=== PATIENT | male | born 1950 | race Caucasian/White ===

== ENCOUNTER 2019-04-05 17:50 | Inpatient (IN) | payer MEDICARE ==
[~2019-04-05] VITALS: Ht 177.8 cm; Wt 107.6 kg
[2019-04-05 18:38] LABS: BASO # 0.1 x10^3/uL (0.0-0.2); BASO % 1 % (0-3); EOS # 0.1 x10^3/uL (0.0-0.7); EOS % 1 % (0-3); HEMATOCRIT 45.9 % (39.0-53.0); HEMOGLOBIN 15.6 g/dL (13.0-17.5); LYMPH # 2.5 x10^3/uL (1.0-4.8); LYMPH % 26 % (24-48); MEAN CORPUSCULAR HEMOGLOBIN 30 pg (25-35); MEAN CORPUSCULAR HGB CONC 34 g/dL (31-37); MEAN CORPUSCULAR VOLUME 89 fL (79-100); MONO % 10 % (0-9); NEUT # 6.1 x10^3uL (1.8-7.7); NEUT % 62 % (31-73); PLATELET COUNT 320 x10^3/uL (140-400); RED BLOOD COUNT 5.18 x10^6/uL (4.30-5.70); RED CELL DISTRIBUTION WIDTH 12.7 % (11.5-14.5); WHITE BLOOD COUNT 9.9 x10^3/uL (4.0-11.0)
[2019-04-05 18:44] LABS: CALCIUM 9.3 mg/dL (8.5-10.1); CREATININE 0.9 mg/dL (0.7-1.3); GFR 83.7; POTASSIUM 4.2 mmol/L (3.5-5.1)
[2019-04-05 18:50] LABS: ALBUMIN/GLOBULIN RATIO 1.4 (1.0-1.7); TOTAL BILIRUBIN 0.3 mg/dL (0.2-1.0); TOTAL PROTEIN 6.8 g/dL (6.4-8.2)
[2019-04-05] MEDS ORDERED: ASPIRIN CHEWABLE 81 MG TABLET. PO ONE (19:00)
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
--- NOTE | 2019-04-05 19:05 | RAD ---
Two-view chest dated 04/05/2019. No comparison available. CLINICAL INDICATION: Chest pain. FINDINGS: PA and lateral views of the chest were obtained. Heart and mediastinal contours within normal limits. Lungs are clear without focal consolidation. Vascular interstitium within normal limits. No pleural effusion or pneumothorax. IMPRESSION: No acute radiographic abnormality. Electronically signed by: Jagjit Mckinnon MD (04/05/2019 7:02 PM) [facility]
[2019-04-05] MEDS ORDERED: NITROGLYCERIN SUBLINGUAL 0.4 MG BOTTLE OF 25. SL PRN (19:45)
[2019-04-05] MEDS ORDERED: ONDANSETRON PF 4 MG/2 ML VIAL. IV PRN (19:45)
[2019-04-05] MEDS ORDERED: MORPHINE SULFATE 2 MG/ML VIAL. IV PRN (19:45)
[2019-04-05 21:50] VITALS: BP 145/97
--- NOTE | 2019-04-05 21:50 | NUR ---
Admit from ER w/ c/o "sharp" chest pain. Points w/ 1 finger at left sternum. Also c/o slight SOA. Denies N/V, sweating, being dizzy or pain radiation. Spouse drive him to ER. Is A/O with bilat hearing aids. Denies chest pain now.
--- NOTE | 2019-04-05 23:13 | NUR ---
Asleep in bed, snores. Patient states he wears a Cpap .
[2019-04-05 23:20] VITALS: BP 120/77
[2019-04-06 03:30] VITALS: BP 119/71
--- NOTE | 2019-04-06 06:13 | EKG ---
[facility] [address] [place] [address] Test Date: 2019-04-05 Test Time: 17:56:05 Pat Name: NITHIN JOVEL Department: Room: Gender: M Mechanic/Welder: : 1950 Requested By: TINO GARDINER Order Number: [id number] Reading MD: Measurements Intervals [place] Rate: 71 P: 31 NC: 146 QRS: -24 QRSD: 104 T: 41 QT: 388 QTc: 422 Interpretive Statements SINUS RHYTHM VENTRICULAR PREMATURE COMPLEX(ES) LEFTWARD AXIS QRS(T) CONTOUR ABNORMALITY CONSIDER ANTEROLATERAL MYOCARDIAL DAMAGE CONSIDER INFERIOR MYOCARDIAL DAMAGE ABNORMAL ECG RI6.01 Unconfirmed report No previous ECG available for comparison
[2019-04-06 07:25] VITALS: BP 127/82
--- NOTE | 2019-04-06 07:27 | NUR ---
Cardiology consult called: 04/06/19 4199
[2019-04-06 09:12] LABS: MAGNESIUM 1.7 mg/dL (1.8-2.4)
[2019-04-06 09:13] LABS: CHOLESTEROL/HDL RATIO 3.4
--- NOTE | 2019-04-06 10:18 | PDOC1 ---
History and Physical Date of Admission Date of Admission DATE: 04/06/19 TIME: 10:08 Identification/Chief Complaint Chief Complaint chest pain Problems: (1) Angina pectoris Source Source: Chart review, Patient History of Present Illness History of Present Illness 68 year old comes in with acute onset of chest pain that started last night whi le he was moving furniture in his basement. CP described as sharp, midsternum, non radiating lasting 1 hr, 2/10. did not take anything to help resolve chest pain. reports chest pain on and off for 6 weeks. seen by PCP as outpatient and given PPI and steroids with no relief. scheduled to see outpatient cards per patient. last stress test was 5 years ago. brother and father had CABG in 50s. denies smoking drugs or etoh. currently has no diagnosed medical problems and takes no meds. trop negative, EKG without any acute changes. chest xray negative. hospitalist asked to admit for ACS rule out. Past Medical History Past Medical History denies Past Surgical History Past Surgical History denies Family History Family History father and brother with CABG in 50s Social History Smoke: No ALCOHOL: none Drugs: None Current Problem List Problem List Problems Medical Problems: (1) Angina pectoris Status: Acute Current Medications Current Medications Current Medications Aspirin (Children'S Aspirin) 324 mg 1X ONCE PO ; Start 04/05/19 at 19:00; Stop 04/05/19 at 19:01; Status DC Ondansetron HCl (Zofran) 4 mg PRN Q8HRS PRN IV NAUSEA/VOMITING; Start 04/05/19 at 19:45; Stop 04/06/19 at 19:44 Morphine Sulfate (Morphine Sulfate) 2 mg PRN Q2HR PRN IV PAIN; Start 04/05/19 at 19:45; Stop 04/06/19 at 19:44 Nitroglycerin (Nitrostat) 0.4 mg PRN Q5MIN PRN SL CHEST PAIN; Start 04/05/19 at 19:45; Stop 04/06/19 at 19:44 Allergies Allergies: Coded Allergies: Penicillins (Verified Allergy, Intermediate, rash, 04/05/19) ROS Review of System CONSTITUTIONAL: No fever or chills EYES: No recent changes SKIN: No rash or itching CARDIOVASCULAR: No chest pain, syncope, palpitations, or edema RESPIRATORY: No SOB or cough GASTROINTESTINAL: No nausea, vomiting or abdominal pain NEUROLOGICAL: No headaches or weakness ENDOCRINE: No cold or heat intolerance GENITOURINARY: No urgency or frequency of urination MUSCULOSKELETAL: No back pain or joint pain LYMPHATICS: No enlarged lymph nodes PSYCHIATRIC: No anxiety or depression Physical Exam Physical Exam GENERAL: No apparent distress. Alert and oriented. HEENT: Head normocephalic, atraumatic. NECK: Supple LUNGS: Clear to auscultation. HEART: RRR, S1, S2 present, pulses intact ABDOMEN: Soft, positive bowel sounds. EXTREMITIES: No cyanosis or edema. NEUROLOGIC: Normal speech, normal tone PSYCHIATRIC: Normal affect, normal mood. SKIN: No ulceration. Vitals Vitals Vital Signs Date Time Temp Pulse Resp B/P (MAP) Pulse Ox O2 Delivery O2 Flow Rate FiO2 04/06/19 07:25 97.9 57 18 127/82 (97) 94 Room Air 97.9 Labs Labs Laboratory Tests Test 04/05/19 17:59 04/06/19 07:58 White Blood Count 9.9 x10^3/uL (4.0-11.0) Red Blood Count 5.18 x10^6/uL (4.30-5.70) Hemoglobin 15.6 g/dL (13.0-17.5) Hematocrit 45.9 % (39.0-53.0) Mean Corpuscular Volume 89 fL (79-100) Mean Corpuscular Hemoglobin 30 pg (25-35) Mean Corpuscular Hemoglobin Concent 34 g/dL (31-37) Red Cell Distribution Width 12.7 % (11.5-14.5) Platelet Count 320 x10^3/uL (140-400) Neutrophils (%) (Auto) 62 % (31-73) Lymphocytes (%) (Auto) 26 % (24-48) Monocytes (%) (Auto) 10 % (0-9) Eosinophils (%) (Auto) 1 % (0-3) Basophils (%) (Auto) 1 % (0-3) Neutrophils # (Auto) 6.1 x10^3uL (1.8-7.7) Lymphocytes # (Auto) 2.5 x10^3/uL (1.0-4.8) Monocytes # (Auto) 1.0 x10^3/uL (0.0-1.1) Eosinophils # (Auto) 0.1 x10^3/uL (0.0-0.7) Basophils # (Auto) 0.1 x10^3/uL (0.0-0.2) Sodium Level 141 mmol/L (136-145) Potassium Level 4.2 mmol/L (3.5-5.1) Chloride Level 105 mmol/L (98-107) Carbon Dioxide Level 25 mmol/L (21-32) Anion Gap 11 (6-14) Blood Urea Nitrogen 19 mg/dL (8-26) Creatinine 0.9 mg/dL (0.7-1.3) Estimated GFR (Cockcroft-Gault) 83.7 BUN/Creatinine Ratio 21 (6-20) Glucose Level 105 mg/dL (70-99) Calcium Level 9.3 mg/dL (8.5-10.1) Total Bilirubin 0.3 mg/dL (0.2-1.0) Aspartate Amino Transf (AST/SGOT) 23 U/L (15-37) Alanine Aminotransferase (ALT/SGPT) 57 U/L (16-63) Alkaline Phosphatase 75 U/L (46-116) Troponin I Quantitative 0.032 ng/mL (0.000-0.055) 0.045 ng/mL (0.000-0.055) Total Protein 6.8 g/dL (6.4-8.2) Albumin 4.0 g/dL (3.4-5.0) Albumin/Globulin Ratio 1.4 (1.0-1.7) Magnesium Level 1.7 mg/dL (1.8-2.4) Triglycerides Level 86 mg/dL (0-150) Cholesterol Level 102 mg/dL (0-200) LDL Cholesterol, Calculated 55 mg/dL (0-100) VLDL Cholesterol, Calculated 17 mg/dL (0-40) Non-HDL Cholesterol Calculated 72 mg/dL (0-129) HDL Cholesterol 30 mg/dL (40-60) Cholesterol/HDL Ratio 3.4 Laboratory Tests Test 04/05/19 17:59 04/06/19 07:58 White Blood Count 9.9 x10^3/uL (4.0-11.0) Red Blood Count 5.18 x10^6/uL (4.30-5.70) Hemoglobin 15.6 g/dL (13.0-17.5) Hematocrit 45.9 % (39.0-53.0) Mean Corpuscular Volume 89 fL (79-100) Mean Corpuscular Hemoglobin 30 pg (25-35) Mean Corpuscular Hemoglobin Concent 34 g/dL (31-37) Red Cell Distribution Width 12.7 % (11.5-14.5) Platelet Count 320 x10^3/uL (140-400) Neutrophils (%) (Auto) 62 % (31-73) Lymphocytes (%) (Auto) 26 % (24-48) Monocytes (%) (Auto) 10 % (0-9) Eosinophils (%) (Auto) 1 % (0-3) Basophils (%) (Auto) 1 % (0-3) Neutrophils # (Auto) 6.1 x10^3uL (1.8-7.7) Lymphocytes # (Auto) 2.5 x10^3/uL (1.0-4.8) Monocytes # (Auto) 1.0 x10^3/uL (0.0-1.1) Eosinophils # (Auto) 0.1 x10^3/uL (0.0-0.7) Basophils # (Auto) 0.1 x10^3/uL (0.0-0.2) Sodium Level 141 mmol/L (136-145) Potassium Level 4.2 mmol/L (3.5-5.1) Chloride Level 105 mmol/L (98-107) Carbon Dioxide Level 25 mmol/L (21-32) Anion Gap 11 (6-14) Blood Urea Nitrogen 19 mg/dL (8-26) Creatinine 0.9 mg/dL (0.7-1.3) Estimated GFR (Cockcroft-Gault) 83.7 BUN/Creatinine Ratio 21 (6-20) Glucose Level 105 mg/dL (70-99) Calcium Level 9.3 mg/dL (8.5-10.1) Total Bilirubin 0.3 mg/dL (0.2-1.0) Aspartate Amino Transf (AST/SGOT) 23 U/L (15-37) Alanine Aminotransferase (ALT/SGPT) 57 U/L (16-63) Alkaline Phosphatase 75 U/L (46-116) Troponin I Quantitative 0.032 ng/mL (0.000-0.055) 0.045 ng/mL (0.000-0.055) Total Protein 6.8 g/dL (6.4-8.2) Albumin 4.0 g/dL (3.4-5.0) Albumin/Globulin Ratio 1.4 (1.0-1.7) Magnesium Level 1.7 mg/dL (1.8-2.4) Triglycerides Level 86 mg/dL (0-150) Cholesterol Level 102 mg/dL (0-200) LDL Cholesterol, Calculated 55 mg/dL (0-100) VLDL Cholesterol, Calculated 17 mg/dL (0-40) Non-HDL Cholesterol Calculated 72 mg/dL (0-129) HDL Cholesterol 30 mg/dL (40-60) Cholesterol/HDL Ratio 3.4 VTE Prophylaxis Ordered VTE Prophylaxis Devices: Yes VTE Pharmacological Prophylaxi: No Assessment/Plan Assessment/Plan ASSESSMENT chest pain, rule out ACS - low clinical pretest prob for PE/DVT - admit to cardiac tele - trend trop - lipids checked and okay - continue ASA - BP stable - NPO for cardiac stress testing - cards consult - check TTE - dvt ppx: ambulatory - full code - dispo: dc once ACS rule out. BEVERLY FARFAN MD April 06, 2019 10:18
[2019-04-06] MEDS ORDERED: ASPIRIN 325 MG TABLET PO SCH (10:30)
[2019-04-06] MEDS ORDERED: MAGNESIUM SULFATE 3 GM in IV DEXTROSE 5% 100ML 100 ML IV ONE (11:00)
--- NOTE | 2019-04-06 11:00 | PDOC2 ---
CARDIAC CONSULT DATE OF CONSULT Date of Consult DATE: 04/06/19 TIME: 10:37 REASON FOR CONSULT Reason for Consult: Angina REFERRING PHYSICIAN Referring Physician: Jhon SOURCE Source: Chart review, Patient HISTORY OF PRESENT ILLNESS HISTORY OF PRESENT ILLNESS This is a pleasant 68 yo male admitted for complains of chest pain. This pain is to the left chest midclavicular line that is focal and reproducible with palpation and has not had it overnight. He was lifting furnitures some of them about 50 pounds for about 30 minutes of activity and at the end of activity started having chest pain as described and was using a lot of his left arm at that time. No radiation but at some point felt a little SOA and flushed but no nausea or vomiting or palpitations or dizziness. He was seen recently by his PCP and diagnosed for typical GERD and was given protonix. EKG was done and showed abnormality telling him he may have had a silent OK int he past hence he has a follow up with assembler musical equipment not here next week. He would like to continue with that new appointment. Denies any VTE, recent falls or injury. His pain is not reproducible with ROM but focal with palpation. He does not exercise and no recreational drug use. PAST MEDICAL HISTORY Cardiovascular: HTN, Hyperlipidemia Pulmonary: No pertinent hx CENTRAL NERVOUS SYSTEM: Carpal Tunnel Syndrome GI: GERD Heme/Onc: No pertinent hx Hepatobiliary: No pertinent hx Psych: No pertinent hx Musculoskeletal: Osteoarthritis Rheumatologic: No pertinent hx Infectious disease: No pertinent hx ENT: No pertinent hx Renal/: No pertinent hx Endocrine: No pertinent hx Dermatology: No pertinent hx PAST SURGICAL HISTORY Past Surgical History: Arthroscopy (right and left), Tonsillectomy, Other (CTS bilateral wrist repair, left elbow repair) FAMILY HISTORY Family History: Coronary Artery Disease (father and brother in their 50s) SOCIAL HISTORY Smoke: No ALCOHOL: none Drugs: None Lives: with Family ALLERGIES ALLERGIES: Coded Allergies: Penicillins (Verified Allergy, Intermediate, rash, 04/05/19) ROS Review of System 14 point ROS evlauated with pertinent positives noted per HPI PHYSICAL EXAM General: Alert, Oriented X3, Cooperative, No acute distress HEENT: Atraumatic, Mucous membr. moist/pink Lungs: Clear to auscultation, Normal air movement Heart: Regular rate (SR with occasional PVC), Normal S1, Normal S2, No murmurs Abdomen: Soft, No tenderness Extremities: No cyanosis, Normal pulses Skin: No breakdown, No significant lesion Neuro: Normal speech, Sensation intact Psych/Mental Status: Mental status NL, Mood NL MUSCULOSKELETAL: Osteoarthritic changes both hands VITALS VITALS Vital Signs Date Time Temp Pulse Resp B/P (MAP) Pulse Ox O2 Delivery O2 Flow Rate FiO2 04/06/19 07:25 97.9 57 18 127/82 (97) 94 Room Air 97.9 LABS Lab: Laboratory Tests Test 04/05/19 17:59 04/06/19 07:58 White Blood Count 9.9 x10^3/uL (4.0-11.0) Red Blood Count 5.18 x10^6/uL (4.30-5.70) Hemoglobin 15.6 g/dL (13.0-17.5) Hematocrit 45.9 % (39.0-53.0) Mean Corpuscular Volume 89 fL (79-100) Mean Corpuscular Hemoglobin 30 pg (25-35) Mean Corpuscular Hemoglobin Concent 34 g/dL (31-37) Red Cell Distribution Width 12.7 % (11.5-14.5) Platelet Count 320 x10^3/uL (140-400) Neutrophils (%) (Auto) 62 % (31-73) Lymphocytes (%) (Auto) 26 % (24-48) Monocytes (%) (Auto) 10 % (0-9) Eosinophils (%) (Auto) 1 % (0-3) Basophils (%) (Auto) 1 % (0-3) Neutrophils # (Auto) 6.1 x10^3uL (1.8-7.7) Lymphocytes # (Auto) 2.5 x10^3/uL (1.0-4.8) Monocytes # (Auto) 1.0 x10^3/uL (0.0-1.1) Eosinophils # (Auto) 0.1 x10^3/uL (0.0-0.7) Basophils # (Auto) 0.1 x10^3/uL (0.0-0.2) Sodium Level 141 mmol/L (136-145) Potassium Level 4.2 mmol/L (3.5-5.1) Chloride Level 105 mmol/L (98-107) Carbon Dioxide Level 25 mmol/L (21-32) Anion Gap 11 (6-14) Blood Urea Nitrogen 19 mg/dL (8-26) Creatinine 0.9 mg/dL (0.7-1.3) Estimated GFR (Cockcroft-Gault) 83.7 BUN/Creatinine Ratio 21 (6-20) Glucose Level 105 mg/dL (70-99) Calcium Level 9.3 mg/dL (8.5-10.1) Total Bilirubin 0.3 mg/dL (0.2-1.0) Aspartate Amino Transf (AST/SGOT) 23 U/L (15-37) Alanine Aminotransferase (ALT/SGPT) 57 U/L (16-63) Alkaline Phosphatase 75 U/L (46-116) Troponin I Quantitative 0.032 ng/mL (0.000-0.055) 0.045 ng/mL (0.000-0.055) Total Protein 6.8 g/dL (6.4-8.2) Albumin 4.0 g/dL (3.4-5.0) Albumin/Globulin Ratio 1.4 (1.0-1.7) Magnesium Level 1.7 mg/dL (1.8-2.4) Triglycerides Level 86 mg/dL (0-150) Cholesterol Level 102 mg/dL (0-200) LDL Cholesterol, Calculated 55 mg/dL (0-100) VLDL Cholesterol, Calculated 17 mg/dL (0-40) Non-HDL Cholesterol Calculated 72 mg/dL (0-129) HDL Cholesterol 30 mg/dL (40-60) Cholesterol/HDL Ratio 3.4 ASSESSMENT/PLAN ASSESSMENT/PLAN 1. Chest pain: mixed features. reproducible with palpation, possibly MSK. Trops are marginal EKG SR with LAFB with occasional unifocal PVCs. 2. Hypomagnesemia 3. HLP: on goal 4. HTN: controlled Recommendations 1. TTE. Repeat trop. If unremarkable then continue with his outpt cardiology new appt next week as he requested 2. Discussed need to outpt stress test which could be arrange with his primary assembler musical equipment 3. TSH, lipids. Restart home ASA, ARB and statin. Replace Mg. 4. May need MCOT to note PVC burden PEDRO ALMENDAREZ APRN April 06, 2019 11:00
[2019-04-06 11:09] VITALS: BP 137/86
--- NOTE | 2019-04-06 12:36 | CARD ---
MR#: [id number] Date of Study: 04/06/2019 Ordering Physician: PEDRO ALMENDAREZ, Referring Physician: ZURDO BETANCOURT, Tech: Natalee Hills APPROVED REPORT EXAM: Two-dimensional and M-mode echocardiogram with Doppler and color Doppler. Other Information Quality : AverageHR: 70bpm INDICATION Chest Pain RISK FACTORS Hypertension Hyperlipidemia 2D DIMENSIONS Left Atrium(2D)3.5 (1.6-4.0cm)IVSd1.3 (0.7-1.1cm) Aortic Root(2D)3.6 (2.0-3.7cm)LVDd5.4 (3.9-5.9cm) LVOT Diameter2.2 (1.8-2.4cm)PWd1.0 (0.7-1.1cm) LVDs3.6 (2.5-4.0cm)FS (%) 33.4 % SV87.6 mlLVEF(%)61.6 (>50%) Aortic Valve AoV Peak Thanh.115.4cm/sAoV VTI27.4cm AO Peak GR.5.3mmHgLVOT Peak Thanh.84.9cm/s AO Mean GR.3mmHgAVA (VMAX)2.85cm2 Mitral Valve MV E Lrwgyyen69.7cm/sMV DECEL [id number] MV A Hptbipqw34.5cm/sE/A Ratio0.8 Pulmonary Valve PV Peak Pqjcfgqa31.6cm/s Tricuspid Valve TR P. Urgyplnf539sg/sRAP AQUHLOAY36loHq TR Peak Gr.07olKnHSPJ95oqHu Pulmonary Vein S1 Fppjdnth03.2cm/sD2 Jaxklyut90.7cm/s PVa [id number] LEFT VENTRICLE The left ventricle is normal size. There is moderate concentric left ventricular hypertrophy. The lef t ventricular systolic function is normal and the ejection fraction is within normal range. The Eject ion Fraction is 50-55%. There is normal LV segmental wall motion. Transmitral Doppler flow pattern is Grade I-abnormal relaxation pattern. RIGHT VENTRICLE The right ventricle is mildly dilated. There is normal right ventricular wall thickness. The right ve ntricular systolic function is normal. ATRIA The left atrium size is normal. The right atrium size is normal. The interatrial septum is intact wit h no evidence for an atrial septal defect or patent foramen ovale as noted on 2-D or Doppler imaging. AORTIC VALVE The aortic valve is normal in structure and function. Doppler and Color Flow revealed no significant aortic regurgitation. There is no significant aortic valvular stenosis. MITRAL VALVE The mitral valve is normal in structure and function. There is no evidence of mitral valve prolapse. There is no mitral valve stenosis. Doppler and Color Flow revealed no mitral valve regurgitation note d. TRICUSPID VALVE The tricuspid valve is normal in structure and function. Doppler and Color Flow revealed trace tricus pid regurgitation with an estimated PAP of 34 mmHg. There is no tricuspid valve stenosis. PULMONIC VALVE The pulmonic valve is not well visualized. Doppler and Color Flow revealed mild pulmonic valvular reg urgitation. GREAT VESSELS The aortic root is normal in size. The IVC is dilated and collapses >50% with inspiration. PERICARDIAL EFFUSION There is no evidence of significant pericardial effusion. Critical Notification Critical Value: No <Conclusion> The left ventricular systolic function is normal and the ejection fraction is within normal range. Th e Ejection Fraction is 50-55%. There is normal LV segmental wall motion. There is moderate concentric left ventricular hypertrophy. Signed by : Jose Angel Baires, Electronically Approved : 04/06/2019 12:36:19
--- NOTE | 2019-04-06 12:50 | NUR ---
SS following for discharge planning. SS reviewed pt chart. Pt is from home with spouse and is currently on room air. No discharge needs noted at this time. SS will continue to follow for discharge planning.
--- NOTE | 2019-04-06 13:40 | EKG ---
[facility] [address] [place] [address] Test Date: 2019-04-06 Test Time: 13:30:21 Pat Name: NITHIN JOVEL Department: Room: 258 1 Gender: M Channel Marketing Manager: RADHA : 1950 Requested By: PEDRO ALMENDAREZ Order Number: [id number] Reading MD: Jose Angel Baires MD Measurements Intervals [place] Rate: 64 P: 24 NV: 166 QRS: -20 QRSD: 102 T: 29 QT: 424 QTc: 437 Interpretive Statements SINUS RHYTHM VENTRICULAR PREMATURE COMPLEX(ES) Electronically Signed On 04-12-2019 11:44:03 CDT by Jose Angel Baires MD
[2019-04-06] MEDS ORDERED: LOSARTAN POTASSIUM 50 MG TABLET. PO SCH (15:00)
[2019-04-06] MEDS ORDERED: amLODIPine BESYLATE 5 MG TABLET PO SCH (15:00)
[2019-04-06] MEDS ORDERED: PANTOPRAZOLE 40 MG TABLET.DR. PO SCH (15:00)
[2019-04-06] MEDS ORDERED: ASPI81TA50 PO (15:14)
[2019-04-06] MEDS ORDERED: LOSA-73 PO (15:14)
[2019-04-06] MEDS ORDERED: ATOR20TA58 PO (15:14)
--- NOTE | 2019-04-06 15:31 | PDOC3 ---
Discharge Summary Visit Information Date of Admission: April 06, 2019 Date of Discharge: April 06, 2019 Final Diagnosis Problems Medical Problems: (1) Angina pectoris Status: Acute Brief Hospital Course Allergies Allergies Coded Allergies Type Severity Reaction Last Updated Verified Penicillins Allergy Intermediate rash 04/05/19 Yes Vital Signs Vital Signs Date Time Temp Pulse Resp B/P (MAP) Pulse Ox O2 Delivery O2 Flow Rate FiO2 04/06/19 11:09 97.9 69 18 137/86 (103) 94 Room Air 97.9 Lab Results Laboratory Tests Test 04/05/19 17:59 04/06/19 07:58 04/06/19 12:25 White Blood Count 9.9 x10^3/uL (4.0-11.0) Red Blood Count 5.18 x10^6/uL (4.30-5.70) Hemoglobin 15.6 g/dL (13.0-17.5) Hematocrit 45.9 % (39.0-53.0) Mean Corpuscular Volume 89 fL (79-100) Mean Corpuscular Hemoglobin 30 pg (25-35) Mean Corpuscular Hemoglobin Concent 34 g/dL (31-37) Red Cell Distribution Width 12.7 % (11.5-14.5) Platelet Count 320 x10^3/uL (140-400) Neutrophils (%) (Auto) 62 % (31-73) Lymphocytes (%) (Auto) 26 % (24-48) Monocytes (%) (Auto) 10 % (0-9) Eosinophils (%) (Auto) 1 % (0-3) Basophils (%) (Auto) 1 % (0-3) Neutrophils # (Auto) 6.1 x10^3uL (1.8-7.7) Lymphocytes # (Auto) 2.5 x10^3/uL (1.0-4.8) Monocytes # (Auto) 1.0 x10^3/uL (0.0-1.1) Eosinophils # (Auto) 0.1 x10^3/uL (0.0-0.7) Basophils # (Auto) 0.1 x10^3/uL (0.0-0.2) Sodium Level 141 mmol/L (136-145) Potassium Level 4.2 mmol/L (3.5-5.1) Chloride Level 105 mmol/L (98-107) Carbon Dioxide Level 25 mmol/L (21-32) Anion Gap 11 (6-14) Blood Urea Nitrogen 19 mg/dL (8-26) Creatinine 0.9 mg/dL (0.7-1.3) Estimated GFR (Cockcroft-Gault) 83.7 BUN/Creatinine Ratio 21 (6-20) Glucose Level 105 mg/dL (70-99) Calcium Level 9.3 mg/dL (8.5-10.1) Total Bilirubin 0.3 mg/dL (0.2-1.0) Aspartate Amino Transf (AST/SGOT) 23 U/L (15-37) Alanine Aminotransferase (ALT/SGPT) 57 U/L (16-63) Alkaline Phosphatase 75 U/L (46-116) Troponin I Quantitative 0.032 ng/mL (0.000-0.055) 0.045 ng/mL (0.000-0.055) 0.050 ng/mL (0.000-0.055) Total Protein 6.8 g/dL (6.4-8.2) Albumin 4.0 g/dL (3.4-5.0) Albumin/Globulin Ratio 1.4 (1.0-1.7) Magnesium Level 1.7 mg/dL (1.8-2.4) Triglycerides Level 86 mg/dL (0-150) Cholesterol Level 102 mg/dL (0-200) LDL Cholesterol, Calculated 55 mg/dL (0-100) VLDL Cholesterol, Calculated 17 mg/dL (0-40) Non-HDL Cholesterol Calculated 72 mg/dL (0-129) HDL Cholesterol 30 mg/dL (40-60) Cholesterol/HDL Ratio 3.4 Laboratory Tests Test 04/05/19 17:59 04/06/19 07:58 04/06/19 12:25 White Blood Count 9.9 x10^3/uL (4.0-11.0) Red Blood Count 5.18 x10^6/uL (4.30-5.70) Hemoglobin 15.6 g/dL (13.0-17.5) Hematocrit 45.9 % (39.0-53.0) Mean Corpuscular Volume 89 fL (79-100) Mean Corpuscular Hemoglobin 30 pg (25-35) Mean Corpuscular Hemoglobin Concent 34 g/dL (31-37) Red Cell Distribution Width 12.7 % (11.5-14.5) Platelet Count 320 x10^3/uL (140-400) Neutrophils (%) (Auto) 62 % (31-73) Lymphocytes (%) (Auto) 26 % (24-48) Monocytes (%) (Auto) 10 % (0-9) Eosinophils (%) (Auto) 1 % (0-3) Basophils (%) (Auto) 1 % (0-3) Neutrophils # (Auto) 6.1 x10^3uL (1.8-7.7) Lymphocytes # (Auto) 2.5 x10^3/uL (1.0-4.8) Monocytes # (Auto) 1.0 x10^3/uL (0.0-1.1) Eosinophils # (Auto) 0.1 x10^3/uL (0.0-0.7) Basophils # (Auto) 0.1 x10^3/uL (0.0-0.2) Sodium Level 141 mmol/L (136-145) Potassium Level 4.2 mmol/L (3.5-5.1) Chloride Level 105 mmol/L (98-107) Carbon Dioxide Level 25 mmol/L (21-32) Anion Gap 11 (6-14) Blood Urea Nitrogen 19 mg/dL (8-26) Creatinine 0.9 mg/dL (0.7-1.3) Estimated GFR (Cockcroft-Gault) 83.7 BUN/Creatinine Ratio 21 (6-20) Glucose Level 105 mg/dL (70-99) Calcium Level 9.3 mg/dL (8.5-10.1) Total Bilirubin 0.3 mg/dL (0.2-1.0) Aspartate Amino Transf (AST/SGOT) 23 U/L (15-37) Alanine Aminotransferase (ALT/SGPT) 57 U/L (16-63) Alkaline Phosphatase 75 U/L (46-116) Troponin I Quantitative 0.032 ng/mL (0.000-0.055) 0.045 ng/mL (0.000-0.055) 0.050 ng/mL (0.000-0.055) Total Protein 6.8 g/dL (6.4-8.2) Albumin 4.0 g/dL (3.4-5.0) Albumin/Globulin Ratio 1.4 (1.0-1.7) Magnesium Level 1.7 mg/dL (1.8-2.4) Triglycerides Level 86 mg/dL (0-150) Cholesterol Level 102 mg/dL (0-200) LDL Cholesterol, Calculated 55 mg/dL (0-100) VLDL Cholesterol, Calculated 17 mg/dL (0-40) Non-HDL Cholesterol Calculated 72 mg/dL (0-129) HDL Cholesterol 30 mg/dL (40-60) Cholesterol/HDL Ratio 3.4 Brief Hospital Course 68 year old comes in with acute onset of chest pain that started last night while he was moving furniture in his basement. CP described as sharp, midsternum, non radiating lasting 1 hr, 2/10. did not take anything to help resolve chest pain. reports chest pain on and off for 6 weeks. seen by PCP as outpatient and given PPI and steroids with no relief. scheduled to see outpatient cards per patient. last stress test was 5 years ago. brother and father had CABG in 50s. denies smoking drugs or etoh. currently has no diagnosed medical problems and takes no meds. trop negative, EKG without any acute changes. chest xray negative. hospitalist asked to admit for ACS rule out. Chest pain: mixed features. reproducible with palpation, possibly MSK. TTE done without wall motion abnormalities. trops negative. will start ASA statin and ARB. Mg low and replaced. will follow up with cards as outpatient for stress test. may need MCOT to note PVC burden. defer to cards. patient discharged in stable condition. Discharge Information Condition at Discharge: Stable Follow Up: Weeks (outpatient cards follow up) Disposition/Orders: D/C to Home Scheduled Aspirin (Aspir-Low) 81 Mg Tablet., 1 TAB PO DAILY for chest pain for 30 Days, #30 Ref 3 Prescribed by: BEVERLY FARFAN MD on 04/06/19 1514 Atorvastatin Calcium (Atorvastatin Calcium) 20 Mg Tablet, 1 TAB PO DAILY for hld for 30 Days, #30 Ref 5 Prescribed by: BEVERLY FARFAN MD on 04/06/19 1514 Losartan Potassium (Losartan Potassium) 50 Mg Tablet, 50 MG PO DAILY for HYPERTENSION for 30 Days, #30 Prescribed by: BEVERLY FARFAN MD on 04/06/194 BEVERLY FARFAN MD April 06, 2019 15:31
[2019-04-06 15:32] VITALS: BP 132/75
--- NOTE | 2019-04-06 15:48 | NUR ---
Discharge Note: NITHIN JOVEL [address] [place] [address] Discharge instructions and discharge home medications reviewed with Patient and a copy given. All questions have been answered and understanding verbalized. The following instructions and handouts were given: Cardiac diet, stress test, CP Discontinued lines and drains: peripheral IV. Patient discharged to Home or Self Care with Spouse via Ambulated Pt declined f/u appt. Has an appt. Wed. w/ his [facility].
[2019-04-06] MEDS ORDERED: ATORVASTATIN CALCIUM 10 MG TABLET. PO SCH (21:00)
== END 2019-04-06 15:55 | disposition home or self-care (01) | DRG 313 ==
LOC: ER 17:50 → 2 SOUTH 19:27
PROVIDERS: ADMIT Family Medicine; ATTEND Family Medicine
DX: R07.89 Other chest pain (principal); E83.42 Hypomagnesemia; E78.5 Hyperlipidemia, unspecified; I10 Essential (primary) hypertension; G56.00 Carpal tunnel syndrome, unspecified upper limb; M19.90 Unspecified osteoarthritis, unspecified site; K21.9 Gastro-esophageal reflux disease without esophagitis; Z88.0 Allergy status to penicillin; Z82.49 Family history of ischemic heart disease and other diseases of the circulatory system
CPT/HCPCS: 36415; 71046; 80053; 80061; 83735; 84484; 85025; 93005; 93306; J3475; 99285-25

== ENCOUNTER 2021-06-02 01:09 | Emergency (ER) | payer MEDICARE, OTHER ==
[~2021-06-02] VITALS: Ht 177.8 cm; Wt 97.7 kg
[~2021-06-02 01:09] MED LIST: ASPI81TA50 PO; ATOR20TA58 PO; LOSA-73 PO
[2021-06-02] MEDS ORDERED: HYDROmorphone 2 MG/ML VIAL IM ONE (04:00)
--- NOTE | 2021-06-02 04:07 | RAD ---
CT ABDOMEN+PELVIS WO INDICATION: left flank pain, right inguinal pain, stone? EXAM: Noncontrast CT of the abdomen and pelvis. Coronal and sagittal reformatted images were perform ed. PQRS compliance statement: One or more of the following individualized dose reduction techniques were utilized for this examinat ion: 1. Automated exposure control 2. Adjustment of the mA and/or kV according to patient size 3. Use of iterative reconstruction technique COMPARISON: None FINDINGS: No free air, free fluid, or fluid collection. Lower chest: Elevation of the left hemidiaphragm. Left basilar subsegmental and relaxation atelectasi s. Coronary artery atherosclerotic disease. ABDOMEN: Liver: The noncontrast liver is homogeneous in attenuation. Gallbladder and biliary: Normal gallbladder without radiopaque stone. Normal caliber bile ducts. Spleen: Normal spleen. Pancreas: The noncontrast pancreas is homogeneous in attenuation without peripancreatic inflammatory changes. Adrenal glands: Normal adrenal glands. Kidneys and ureters: Mild left hydroureteronephrosis with a 5 x 3 mm calculus at the ureterovesicular junction. Additional nonobstructive left renal 4 mm calculus. GI tract: The stomach is decompressed and poorly evaluated. Normal caliber small bowel and colon. Nor mal appendix. Minimal colonic diverticulosis. Vascular structures: Normal caliber abdominal aorta. Lymph nodes: No lymphadenopathy in the abdomen or pelvis. PELVIS: Genitourinary system: Normal bladder. SKELETAL STRUCTURES AND SOFT TISSUES: No fracture or destructive lesion in the visualized skeleton. IMPRESSION: 1. Mild left hydroureteronephrosis with a 5 x 3 mm calculus at the ureterovesicular junction. 2. Additional nonobstructive left renal 4 mm calculus. Electronically signed by: Ramiro Vilchis MD (06/02/2021 4:04 AM) [facility]PITALJeremias
[2021-06-02] MEDS ORDERED: HYDR-2761 PO (05:58)
[2021-06-02] MEDS ORDERED: TAMS0.4C97 PO (05:58)
[2021-06-02] MEDS ORDERED: ONDA4TAB12 PO (05:58)
--- NOTE | 2021-06-02 05:59 | PHYS DOC ---
Past Medical History Past Medical History: Hypertension Additional Past Medical Histor: CHEHALIS, CARPAL TUNNEL Past Surgical History: Other Additional Past Surgical Histo: BX KNEE SCOPE, L ELBOW Smoking Status: Never Smoker Alcohol Use: None Drug Use: None General Adult EDM: Chief Complaint: FLANK PAIN HPI: HPI: 70 yo male past medical history of hypertension and decreased hearing (got his hearing aids), resents the ED with complaints of left pain that is now moved into his left pelvic region for the past 24 hours with associated severe pain, "I'm vomiting everything up." Review of Systems: Review of Systems: Constitutional: Denies fever or chills. [] Eyes: Denies change in visual acuity. [] HENT: Denies nasal congestion or sore throat. [] Respiratory: Denies cough or shortness of breath. [] Cardiovascular: Denies chest pain or edema. [] GI: Denies bloody stools or diarrhea. [] : Denies dysuria or hematuria Musculoskeletal: Denies joint pain or deformity Integument: Denies rash or diaphoresis Neurologic: Denies headache, focal weakness or sensory changes. [] Endocrine: Denies polyuria or polydipsia. [] Lymphatic: Denies swollen glands. [] Psychiatric: Denies depression or anxiety. [] Heart Score: C/O Chest Pain: No Risk Factors: Risk Factors: DM, Current or recent (<one month) smoker, HTN, HLP, family history of CAD, obesity. Risk Scores: Score 0 - 3: 2.5% MACE over next 6 weeks - Discharge Home Score 4 - 6: 20.3% MACE over next 6 weeks - Admit for Clinical Observation Score 7 - 10: 72.7% MACE over next 6 weeks - Early Invasive Strategies Current Medications: Current Medications Medications (Trade) Dose Ordered Sig/Summer Start Time Stop Time Status Last Admin Dose Admin Hydromorphone HCl (Dilaudid) 1 mg 1X ONCE 06/02/21 04:00 06/02/21 04:04 DC 06/02/21 04:02 1 MG Allergies: Allergies: Allergies Coded Allergies Type Severity Reaction Last Updated Verified Penicillins Allergy Intermediate rash 04/05/19 Yes Physical Exam: PE: CONSTITUTIONAL: Nontoxic, in no distress, alert and oriented, hemodynamically stable HEAD: normocephalic, atraumatic, NECK: No midline tenderness, no nuchal rigidity or meningismus, no JVD or tracheal deviation EENT: External ocular movements intact, no trismus or drooling, no voice changes, moist mucous membranes CARD: Regular rate, S1, S2, no murmurs ABDOMEN: Soft, nontender, no distention, no rebound tenderness or guarding RESPIRATORY lungs clear to auscultation bilaterally, no wheezing, rales or crackles, no stridor or tripoding, unlabored respiratory effort MUSCULOSKELETAL: Full range of motion's in all extremities, no deformities or tenderness to palpation VASCULAR: pulses intact SKIN: Warm, no rash lesions or cyanosis NEURO: Sensory motor intact, cranial nerves II through XII intact PSYCH: Appropriate mood and affect Current Patient Data: Vital Signs: Vital Signs Date Time Temp Pulse Resp B/P (MAP) Pulse Ox O2 Delivery O2 Flow Rate FiO2 06/02/21 04:02 16 97 06/02/21 03:59 80 191/63 (105) Room Air 06/02/21 01:30 98.6 98.6 EKG: EKG: [] Radiology/Procedures: Radiology/Procedures: IMAGING REPORT Signed PATIENT: NITHIN JOVEL ACCOUNT: [id number] : 1950 LOCATION: ER AGE: 70 SEX: M EXAM STATUS: PRE ER ORD. PHYSICIAN: ROBERTA GLOVER DO REASON: left flank pain, right inguinal pain, stone? PROCEDURE: CT ABDOMEN PELVIS WO CONTRAST CT ABDOMEN+PELVIS WO INDICATION: left flank pain, right inguinal pain, stone? EXAM: Noncontrast CT of the abdomen and pelvis. Coronal and sagittal reform atted images were performed. PQRS compliance statement: One or more of the following individualized dose reduction techniques were utilized for this examination: 1. Automated exposure control 2. Adjustment of the mA and/or kV according to patient size 3. Use of iterative reconstruction technique COMPARISON: None FINDINGS: No free air, free fluid, or fluid collection. Lower chest: Elevation of the left hemidiaphragm. Left basilar subsegmental and relaxation atelectasis. Coronary artery atherosclerotic disease. ABDOMEN: Liver: The noncontrast liver is homogeneous in attenuation. Gallbladder and biliary: Normal gallbladder without radiopaque stone. Normal caliber bile ducts. Spleen: Normal spleen. Pancreas: The noncontrast pancreas is homogeneous in attenuation without peripancreatic inflammatory changes. Adrenal glands: Normal adrenal glands. Kidneys and ureters: Mild left hydroureteronephrosis with a 5 x 3 mm calculus at the ureterovesicular junction. Additional nonobstructive left renal 4 mm calcul us. GI tract: The stomach is decompressed and poorly evaluated. Normal caliber small bowel and colon. Normal appendix. Minimal colonic diverticulosis. Vascular structures: Normal caliber abdominal aorta. Lymph nodes: No lymphadenopathy in the abdomen or pelvis. PELVIS: Genitourinary system: Normal bladder. SKELETAL STRUCTURES AND SOFT TISSUES: No fracture or destructive lesion in the visualized skeleton. IMPRESSION: 1. Mild left hydroureteronephrosis with a 5 x 3 mm calculus at the ureterovesicular junction. 2. Additional nonobstructive left renal 4 mm calculus. Electronically signed by: Jose Vilchis MD (06/02/2021 4:04 AM) [facility] DICTATED and SIGNED BY: JOSE VILCHIS MD DATE: 06/02/21 [id number] Course & Med Decision Making: Course & Med Decision Making Pertinent Labs and Imaging studies reviewed. (See chart for details) Will discharge home with strict ED return precautions were given for severe worsening pain, persistent nausea or vomiting, fever, flulike symptoms or inability to urinate. Encouraged urgent outpatient follow-up with PMD and urology. Life-threatening processes were considered but are low suspicion at this time, given history, physical exam and ED workup. Pt was educated on all prescription medications and adverse effects. All patient's questions were answered and pt was stable at time of discharge. Life/limb-threatening differential includes but is not limited to, aortic dissection/aneurysm, cauda equina syndrome, transverse myelitis, spinal cord/epidural compression syndromes, discitis, spinal stenosis, epidural abscess or hematoma, osteomyelitis, disc herniation, surgical abdomen, stable or unstable fracture, renal/ureteral colic, sepsis, meningitis, musculoskeletal injury, traumatic injury, intraabdominal/retroperitoneal or pelvic bleeding. I have spoken with the patient and/or caregivers. I explained the patient's condition, diagnoses and treatment plan based on the information available to me at this time. I have answered the patient and/or caregiver's questions and addressed any concerns. The patient and/or caregivers have a good understanding of patient's diagnosis, condition and treatment plan as can be expected at this point. Vital signs have been stable. Patient's condition is stable and appropriate for discharge from the emergency department. Patient will pursue further outpatient evaluation with primary care physician or other designated or consulting physician as outlined in the discharge instructions. The patient and/or caregivers are agreeable to this plan of care and follow-up instructions have been explained in detail. The patient and/or caregivers have received these instructions in written form and have expressed an understanding of the discharge instructions. The patient and/or caregivers are aware that any significant change of condition or worsening of symptoms should prompt immediate return to this or the closest emergency department or call to 911. Brad Disclaimer: Tosk Disclaimer: This electronic medical record was generated, in whole or in part, using a voice recognition dictation system. Departure Departure Impression: Primary Impression: Ureterolithiasis Additional Impression: Renal colic on left side Disposition: HOME / SELF CARE / HOMELESS Condition: STABLE Referrals: BJORN KAY MD (PCP) Follow-up with your primary care physician in 24 to 48 hours OR FOLLOW UP WITH FAMILY MEDICINE: [address] [facility] [place] [address] Patient Instructions: Diet for Kidney Stones, Ureteral Colic Additional Instructions: FOLLOW UP WITH UROLOGY: FOR DEFINITIVE MANAGEMENT of kidney stones [facility] [address] [place], [place] [id number] [facility] [place] [address] [address] [place] [address] [facility] [place] [address] [place] [address] EMERGENCY DEPARTMENT GENERAL DISCHARGE INSTRUCTIONS Thank you for coming to [facility] Emergency Department (ED) today and trusting us with you care. We trust that you had a positive experience in our Emergency Department. If you wish to speak to the department management, you may call the Director at [phone]. YOUR FOLLOW UP INSTRUCTIONS ARE FOLLOWS: 1. Do you have a private Doctor? If you do not have a private doctor, please ask for a resource list of physicians or clinics that may be able to assist you with follow up care. 2. The Emergency Physicain has interpreted your x-rays. The X-Ray specialist will also review them. If there is a change in the findings, you will be notified in 48 hours when at all possible. 3. A lab test or culture has been done, your results will be reviewed and you will be notified if you need a change in treatment. ADDITIONAL INSTRUCTIONS AND INFORMATION: 1. Your care today has been supervised by a physician who is specially trained in emergency care. Many problems require more than one evaluation for a complete diagnosis and treatment. We recommend that you schedule your follow up appointment as recommended to ensure complete treatment of you illness or injury. If you are unable to obtain follow up care and continue to have a problem, or if your condition worsens, we recommend that you return to the ED. 2. We are not able to safely determine your condition over the phone nor are we able to give sound medical advice over the phone. For these safety reasons, if you call for medical advice we will ask you to come to the ED for further evaluation. 3. If you have any questions regarding these discharge instructions please call the ED at [phone]. SAFETY INFORMATION: In the interest of safety, wellness, and injury prevention; we encourage you to wear your sealbelt, if you smoke; quite smoking, and we encourage family to use a protective helmet for bicycling and other sporting events that present an increased risk for head injury. IF YOUR SYMPTOMS WORSEN OR NEW SYMPTOMS DEVELOP, OR YOU HAVE CONCERNS ABOUT YOUR CONDITION; OR IF YOUR CONDITION WORSENS WHILE YOU ARE WAITING FOR YOUR FOLLOW UP APPOINTMENT; EITHER CONTACT YOUR PRIMARY CARE DOCTOR, THE PHYSICIAN WHOSE NAME AND NUMBER YOU WERE GIVEN, OR RETURN TO THE ED IMMEDIATELY. Scripts Ondansetron (ONDANSETRON ODT) 4 Mg Tab.rapdis 1 TAB PO PRN Q6-8HRS, #20 TAB Prov: ROBERTA GLOVER DO 06/02/21 Tamsulosin Hcl (FLOMAX) 0.4 Mg Cap.er.24h 1 CAP PO DAILY for 7 Days, #7 CAP 0 Refills Prov: ROBERTA GLOVER DO 06/02/21 Hydrocodone Bit/Acetaminophen (HYDROCODONE-APAP 5-325 ) 1 Tab Tablet 1 TAB PO PRN Q6HRS PRN for PAIN for 4 Days, #16 TAB 0 Refills Prov: ROBERTA GLOVER DO 06/02/21 ROBERTA GLOVER DO Jun 02, 2021 05:59
[2021-06-02 06:52] VITALS: BP 156/89
[2021-06-02] MEDS ORDERED: HYDROcodone/APAP 5/325MG 1 TAB TABLET PO ONE (07:30)
== END 2021-06-02 07:34 | disposition home or self-care (01) ==
LOC: ER 01:09
DX: N13.2 Hydronephrosis with renal and ureteral calculous obstruction (principal); N23 Unspecified renal colic; I10 Essential (primary) hypertension; Z88.0 Allergy status to penicillin
CPT/HCPCS: 74176; 96372; 99285; J1170